=== PATIENT | female | born 1950 | race Caucasian/White ===

== ENCOUNTER 2018-11-20 21:06 | Emergency (ER) | payer MEDICARE, MEDICAID ==
[~2018-11-20] VITALS: Ht 162.6 cm; Wt 70.8 kg
--- NOTE | 2018-11-20 21:25 | NUR ---
PT PRESENTED TO THE ER WITH A C/O LT SIDED HEADACHE X 2 MONTHS THAT DOES NOT IMPROVE WITH MEDICATION. PT AMBULATED TO ER #7 WITH A STEADY GAIT. PT WAS PLACED ON THE MONITOR AND CONTINUOUS PULSE OX. OVERHEAD LIGHTS WERE TURNED OFF TO HELP RELIEVE THE PAIN FROM THE HEADACHE. PT TOOK TRAMADOL 50MG AT 2000 TODAY AND PAIN DROPPED FROM 10/10 TO 5/10.
--- NOTE | 2018-11-20 22:53 | NUR ---
PT APPEARS TO BE RESTING COMFORTABLY WITH NO S/S OF PAIN OR DISTRESS.
[2018-11-20 23:05] VITALS: BP 152/72
--- NOTE | 2018-11-20 23:06 | NUR ---
Patient discharged to home in stable condition. Written and verbal after care instructions given. Patient verbalizes understanding of instruction. PT AMBULATED OUT WITH A STEADY GAIT. VSS. PT'S DAUGHTER IS DRIVING PT HOME.
== END 2018-11-20 23:06 | disposition home or self-care (01) ==
LOC: ER 21:09
DX: R51 Headache (principal); I10 Essential (primary) hypertension; J44.9 Chronic obstructive pulmonary disease, unspecified; M19.90 Unspecified osteoarthritis, unspecified site; F41.9 Anxiety disorder, unspecified; Z87.442 Personal history of urinary calculi; Z98.890 Other specified postprocedural states; Z88.8 Allergy status to other drugs, medicaments and biological substances